=== PATIENT | female | born 1975 | race Caucasian/White ===

== ENCOUNTER → 2020-06-27 16:57 | Outpatient (CLI) | payer BC, SELFPAY ==
[2020-06-29 13:20] LABS: Covid-19 Nasal PCR Sendout Lex Not Detected
== END ==
PROVIDERS: PCP Emergency Medicine; Visit Provider Emergency Medicine
DX: Z03.818 Encounter for observation for suspected exposure to other biological agents ruled out (principal)
CPT/HCPCS: U0004